=== PATIENT | male | born 1945 | race Caucasian/White ===

== ENCOUNTER 2017-09-05 03:50 | Inpatient (IN) | payer MEDICARE, BC ==
[2017-09-05] MEDS ORDERED: Ondansetron 4 MG Tab.DIS PO ONE (04:46)
[2017-09-05] MEDS ORDERED: Sodium Chloride 0.9% 10 ML Syringe FLUSH PRN (05:06)
[2017-09-05] MEDS ORDERED: Iopamidol 612 MG/ML 150 ML Bottle IV PRN (05:16)
--- NOTE | 2017-09-05 05:54 | EDM.PDOC ---
ED HPI GENERAL MEDICAL PROBLEM - General Chief Complaint: Gastrointestinal Problem Stated Complaint: LOWER STOMACH PAIN Time Seen by Provider: 09/05/17 04:46 Source of Information: Reports: Patient History Limitations: Reports: No Limitations - History of Present Illness INITIAL COMMENTS - FREE TEXT/NARRATIVE: This patient had coronary artery bypass surgery about 5 days ago. While in the hospital he developed some diarrhea but that had decreased by the last day he was there. Now he's having a lot of abdominal pain lower abdominal pain began about 9:30 PM tonight he took some tramadol but that didn't seem to help any. He describes the pain is about 8 out of 10. Abdomen Pain Score (Numeric/FACES): 8 - Related Data Allergies Allergy/AdvReac Type Severity Reaction Status Date / Time codeine [From Guaiatussin AC] AdvReac Vomiting Verified 09/05/17 08:48 guaifenesin AdvReac Vomiting Verified 09/05/17 08:48 [From Guaiatussin ] Home Meds: Home Meds Aspirin 325 mg PO DAILY 06/05/15 [History] FLUoxetine [PROzac] 20 mg PO DAILY 06/05/15 [History] Simvastatin [Zocor] 80 mg PO DAILY 06/05/15 [History] Amiodarone [Cordarone] 200 mg PO DAILY 09/05/17 [History] Docusate Sodium [Dss] 250 mg PO DAILY 09/05/17 [History] Metoprolol Tartrate 25 mg PO BID 09/05/17 [History] Omeprazole [priLOSEC OTC] 20 mg PO DAILY 09/05/17 [History] traMADol Hcl/Acetaminophen [Ultracet Tablet] 1 each PO Q4H PRN 09/05/17 [History ] Past Medical History HEENT History: Reports: Impaired Vision Cardiovascular History: Reports: Aneurysm, Angina, CAD, High Cholesterol, Hypertension, PVD Musculoskeletal History: Reports: Arthritis, Back Pain, Chronic - Past Surgical History Cardiovascular Surgical History: Reports: AAA Repair, Coronary Artery Bypass Other Cardiovascular Surgeries/Procedures: CABGx4 Male Surgical History: Reports: Other (See Below) Other Male Surgeries/Procedures: stent placed in bladder after AAA surgery Social & Family History - Tobacco Use Smoking Status *Q: Former Smoker Used Tobacco, but Quit: Yes Month Tobacco Last Used: 10 years - Caffeine Use Caffeine Use: Reports: Coffee - Recreational Drug Use Recreational Drug Use: No ED ROS GENERAL - Review of Systems Review Of Systems: ROS reveals no pertinent complaints other than HPI. ED EXAM, GI/ABD - Physical Exam Exam: See Below Exam Limited By: No Limitations General Appearance: Alert, WD/WN, Mild Distress Eyes: Bilateral: Normal Appearance Throat/Mouth: Normal Oropharynx Head: Atraumatic Neck: Normal Inspection Respiratory/Chest: No Respiratory Distress, Lungs Clear Cardiovascular: Regular Rate, Rhythm GI/Abdominal Exam: Other (Slightly distended and firm there is increased redness in the left upper quadrant suggesting a lot of gas there. I don't appreciate any definite masses throughout the rest the abdomen but he just has generalized tenderness) Extremities: Normal Inspection Neurological: Alert, Oriented Skin Exam: Warm, Dry Course - Vital Signs Last Recorded V/S: Last Vital Signs Temp 37.1 C 09/06/17 03:00 Pulse 70 09/06/17 03:00 Resp 18 09/06/17 03:00 BP 112/69 09/06/17 03:00 Pulse Ox 96 09/06/17 05:26 - Orders/Labs/Meds Orders: Active Orders 24 hr Category Date Time Status Abdomen Pelvis w Cont [CT] Stat Exams 09/05/17 05:06 Taken Saline Lock Insert [OM.PC] Urgent Oth 09/05/17 05:06 Ordered Medication Orders Amiodarone HCl (Cordarone) 200 mg PO DAILY [facility] Last Admin: 09/05/17 11:23 Dose: 200 mg Aspirin (Ecotrin) 325 mg PO DAILY [facility] Last Admin: 09/05/17 11:23 Dose: 325 mg Docusate Sodium (Colace) 200 mg PO DAILY [facility] Last Admin: 09/05/17 11:22 Dose: 200 mg Fluoxetine HCl (Prozac) 20 mg PO DAILY [facility] Last Admin: 09/05/17 11:25 Dose: 20 mg Hydromorphone HCl (Dilaudid Reclamation Worker 15 Mg In Ns 30 Ml) 0 mg IV ASDIRECTED PRN; Protocol 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 Last Admin: 09/05/17 11:07 Dose: 15 mg Ampicillin Sodium/Sulbactam (Sodium 3 gm/ Sodium Chloride) 100 mls @ 200 mls/ hr IV Q6HR [facility] Last Admin: 09/06/17 04:59 Dose: 200 mls/hr Admin: 02/18/18 21:19 Dose: 200 mls/hr Admin: 09/05/17 15:24 Dose: 200 mls/hr Admin: 09/05/17 11:16 Dose: 200 mls/hr Aztreonam/Dextrose 1 gm/ (Premix) 50 mls @ 100 mls/hr IV Q8H [facility] Last Admin: 09/06/17 00:01 Dose: 100 mls/hr Infusion: 09/05/17 16:40 Dose: 100 mls/hr Admin: 09/05/17 16:10 Dose: 100 mls/hr Infusion: 09/05/17 09:20 Dose: 100 mls/hr Admin: 09/05/17 08:50 Dose: 100 mls/hr Potassium Chloride/Dextrose/Sod Cl (D5 1/2 Ns W/ 20 Meq/L Kcl) 1,000 mls @ 100 mls/hr IV ASDIRECTED [facility] Last Admin: 09/05/17 23:57 Dose: 100 mls/hr Metoprolol Tartrate (Lopressor) 25 mg PO BID [facility] Last Admin: 09/05/17 21:19 Dose: 25 mg Admin: 09/05/17 11:29 Dose: 25 mg Naloxone HCl (Narcan) 0.1 mg IV ASDIRECTED PRN PRN Reason: decreased respiratory rate Ondansetron HCl (Zofran) 4 mg IVPUSH Q4H PRN PRN Reason: Nausea Pantoprazole Sodium (Protonix Iv) 40 mg IV Q24H [facility] Last Admin: 09/05/17 11:25 Dose: 40 mg Simvastatin (Zocor) 80 mg PO BEDTIME [facility] Last Admin: 09/05/17 21:19 Dose: 80 mg Tramadol HCl (Ultram) 50 mg PO Q4H PRN PRN Reason: Pain Labs: Laboratory Tests 09/05/17 09/05/17 09/05/17 Range/Units 05:18 05:18 06:22 WBC 7.3 (4.5-11.0) K/uL RBC 3.33 L (4.30-5.90) M/uL Hgb 10.5 L (12.0-15.0) g/dL Hct 33.0 L (40.0-54.0) % MCV 99 H (80-98) fL MCH 32 H (27-31) pg MCHC 32 (32-36) % Plt Count 177 (150-400) K/uL Neut % (Auto) 68 H (36-66) % Lymph % (Auto) 14 L (24-44) % [place] % (Auto) 12 H (2-6) % Eos % (Auto) 6 H (2-4) % Baso % (Auto) 0 (0-1) % Sodium 137 L (140-148) mmol/L Potassium 4.0 (3.6-5.2) mmol/L Chloride 103 (100-108) mmol/L Carbon Dioxide 25 (21-32) mmol/L Anion Gap 13.0 (5.0-14.0) mmol/L BUN 22 H (7-18) mg/dL Creatinine 1.4 H (0.8-1.3) mg/dL Est Cr Clr Drug Dosing 50.80 mL/min Estimated GFR (MDRD) 50 L (>60) Glucose 120 H (74-106) mg/dL Calcium 8.1 L (8.5-10.1) mg/dL Total Bilirubin 0.4 (0.2-1.0) mg/dL AST 30 (15-37) U/L ALT 29 (12-78) U/L Alkaline Phosphatase 43 L (46-116) U/L Total Protein 5.9 L (6.4-8.2) g/dL Albumin 2.6 L (3.4-5.0) g/dL Globulin 3.3 (2.3-3.5) g/dL Albumin/Globulin Ratio 0.8 L (1.2-2.2) Urine Color Yellow Urine Appearance Clear Urine pH 7.0 (4.5-8.0) Ur Specific Deal 1.005 L (1.008-1.030) Urine Protein Trace (NEGATIVE) mg/dL Urine Glucose (UA) Normal (NEGATIVE) mg/dL Urine Ketones Negative (NEGATIVE) mg/dL Urine Occult Blood Negative (NEGATIVE) Urine Nitrite Negative (NEGAITVE) Urine Bilirubin Negative (NEGATIVE) Urine Urobilinogen Normal (NORMAL) mg/dL Ur Leukocyte Esterase Negative (NEGATIVE) Urine RBC 0-5 (0-5) Urine WBC Not seen (0-5) Ur Epithelial Cells Not seen Amorphous Sediment Not seen Urine Bacteria Not seen Urine Mucus Not seen Meds: Medications Generic Name Dose Route Start Last Admin Trade Name Freq PRN Reason Stop Dose Admin Amiodarone HCl 200 mg 09/05/17 09:00 09/05/17 11:23 Cordarone PO 200 mg DAILY NARENDRA Administration Aspirin 325 mg 09/05/17 09:00 09/05/17 11:23 Ecotrin PO 325 mg DAILY NARENDRA Administration Docusate Sodium 200 mg 09/05/17 09:00 09/05/17 11:22 Colace PO 200 mg DAILY NARENDRA Administration Fluoxetine HCl 20 mg 09/05/17 09:00 09/05/17 11:25 Prozac PO 20 mg DAILY NARENDRA Administration Hydromorphone HCl 0 mg 09/05/17 08:45 09/05/17 11:07 Dilaudid Reclamation Worker 15 Mg In Ns 30 Ml IV 15 mg ASDIRECTED PRN Administration P[employer]NCING [employer]HE OPERATOR PAIN CONTROL Protocol Ampicillin Sodium/Sulbactam 100 mls @ 200 mls/hr 09/05/17 10:00 09/06/17 04: 59 Sodium 3 gm/ Sodium Chloride IV 200 mls/hr Q6HR NARENDRA Administration Aztreonam/Dextrose 1 gm/ 50 mls @ 100 mls/hr 09/05/17 09:00 09/06/17 00:01 Premix IV 100 mls/hr Q8H NARENDRA Administration Potassium Chloride/Dextrose/Sod Cl 1,000 mls @ 100 mls/hr 09/05/17 08:45 23:57 D5 1/2 Ns W/ 20 Meq/L Kcl IV 100 mls/hr ASDIRECTED NARENDRA Administration Metoprolol Tartrate 25 mg 09/05/17 09:00 09/05/17 21:19 Lopressor PO 25 mg BID NARENDRA Administration Naloxone HCl 0.1 mg 09/05/17 08:45 Narcan IV ASDIRECTED PRN decreased respiratory rate Ondansetron HCl 4 mg 09/05/17 08:42 Zofran IVPUSH Q4H PRN Nausea Pantoprazole Sodium 40 mg 09/05/17 09:00 09/05/17 11:25 Protonix Iv IV 40 mg Q24H NARENDRA Administration Simvastatin 80 mg 09/05/17 21:00 09/05/17 21:19 Zocor PO 80 mg BEDTIME NARENDRA Administration Tramadol HCl 50 mg 09/05/17 08:42 Ultram PO Q4H PRN Pain Discontinued Medications Generic Name Dose Route Start Last Admin Trade Name Roscoeq PRN Reason Stop Dose Admin Sodium Chloride 84 mls @ 3.5 mls/sec 09/05/17 05:30 09/05/17 05:40 Normal Saline IV 3.5 mls/sec ASDIRECTED NARENDRA Administration Iopamidol 133 ml 09/05/17 05:16 09/05/17 05:39 Isovue-300 (61%) IV 09/06/17 05:17 133 ml . DIRECTED PRN Administration RADIOLOGY EXAM Ondansetron HCl 8 mg 09/05/17 04:46 09/05/17 05:02 Zofran Odt PO 09/05/17 04:47 Not Given ONETIME ONE Ondansetron HCl 4 mg 09/05/17 07:45 09/05/17 07:54 Zofran IVPUSH 09/05/17 07:46 4 mg ONETIME ONE Administration Sodium Chloride 10 ml 09/05/17 05:06 09/05/17 07:57 Saline Flush FLUSH 10 ml ASDIRECTED PRN Administration Keep Vein Open - Radiology Interpretation Free Text/Narrative:: Abdominal CT showed some suspected walled bowel bowel wall thickening at the splenic flexure possibly due to infectious colitis inflammatory bowel disease or ischemic changes. 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 Kunal Dolan her surgeon and he easily come down and take a look at him and a little while. I informed the patient overall patient looks like he is in the pretty good condition not in any distress at all. Free Text/Narrative Re-Assessment/Exam: 09/06/17 06:00 Dr. Vasquez Dolan saw this patient in the emergency department and felt that he had acute cholecystitis. He admitted him with plans to do a cholecystectomy Departure - Departure Time of Disposition: 07:00 Disposition: Admitted As Inpatient 66 Condition: Fair Clinical Impression: Acute cholecystitis - Discharge Information - My Orders Last 24 Hours: My Active Orders 09/05/17 05:06 Abdomen Pelvis w Cont [CT] Stat Saline Lock Insert [OM.PC] Urgent - Assessment/Plan Last 24 Hours: My Active Orders 09/05/17 05:06 Abdomen Pelvis w Cont [CT] Stat Saline Lock Insert [OM.PC] Urgent
[2017-09-05] MEDS ORDERED: Ondansetron 4 MG/2 ML SDV IVPUSH ONE (07:45)
[2017-09-05] MEDS ORDERED: Ondansetron 4 MG/2 ML SDV IVPUSH PRN (08:42)
[2017-09-05] MEDS ORDERED: traMADol 50 MG Tab PO PRN (08:42)
[2017-09-05] MEDS ORDERED: Naloxone 0.4 MG/ML SDV IV PRN (08:45)
[2017-09-05] MEDS ORDERED: HYDROmorphone/Normal Saline 15 MG/30 ML PCA IV PRN (08:45)
[2017-09-05] MEDS: Aztreonam/Dextrose-Water 1 GM in Premix Bag 1 BAG IV SCH ×2 (08:50→16:10)
[2017-09-05] MEDS: Ampicillin/Sulbactam Na 3 GM in Sodium Chloride 0.9% 100 ML IV SCH ×3 (11:16→21:19)
[2017-09-05] MEDS: Docusate Sodium 100 MG Cap PO SCH (11:22)
[2017-09-05] MEDS: Aspirin 325 MG Tab.EC PO SCH (11:23)
[2017-09-05] MEDS: Amiodarone 200 MG Tab PO SCH (11:23)
[2017-09-05] MEDS: Pantoprazole 40 MG Vial IV SCH (11:25)
[2017-09-05] MEDS: FLUoxetine 20 MG Cap PO SCH (11:25)
[2017-09-05] MEDS: Metoprolol Tartrate 25 MG Tab PO SCH ×2 (11:29→21:19)
--- NOTE | 2017-09-05 13:16 | PCM.PN ---
- General Info Date of Service: 09/05/17 Admission Dx/Problem (Free Text): Called to to do a consult for medical management for Yoni who I have known for many years. Last week, Wednesday, he had CABS with 4 vessel bypass. Last evening he developed abd pain and came to the ER and was found to have an acute gallbladder. He was admitted early this morning. 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 He also has a history of HTN and depression. - Review of Systems General: Reports: Weakness, Fatigue HEENT: Reports: No Symptoms Pulmonary: Reports: Shortness of Breath Cardiovascular: Reports: Dyspnea on Exertion Gastrointestinal: Reports: Abdominal Pain Genitourinary: Reports: No Symptoms Musculoskeletal: Reports: No Symptoms Skin: Reports: No Symptoms Psychiatric: Reports: No Symptoms - Patient Data Vitals - Most Recent: Last Vital Signs Temp 99.5 F 09/05/17 11:32 Pulse 85 09/05/17 11:47 Resp 18 09/05/17 11:32 BP 139/75 09/05/17 11:47 Pulse Ox 94 L 09/05/17 13:02 Weight - Most Recent: 194 lb 2 oz I&O - Last 24 Hours: Intake & Output 09/04/17 09/05/17 09/05/17 22:59 06:59 14:59 Intake Total 610 Output Total 500 Balance 110 Lab Results Last 24 Hours: Laboratory Results - last 24 hr 09/05/17 Range/Units 09:37 NT-Pro-B Natriuret Pep 4434 H (5-125) pg/mL Med Orders - Current: Current Medications Amiodarone HCl (Cordarone) 200 mg PO DAILY [facility] Last Admin: 09/05/17 11:23 Dose: 200 mg Aspirin (Ecotrin) 325 mg PO DAILY [facility] Last Admin: 09/05/17 11:23 Dose: 325 mg Docusate Sodium (Colace) 200 mg PO DAILY [facility] Last Admin: 09/05/17 11:22 Dose: 200 mg Fluoxetine HCl (Prozac) 20 mg PO DAILY [facility] Last Admin: 09/05/17 11:25 Dose: 20 mg Hydromorphone HCl (Dilaudid Manager Laundry 15 Mg In Ns 30 Ml) 0 mg IV ASDIRECTED PRN; 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 Last Admin: 09/05/17 11:07 Dose: 15 mg Ampicillin Sodium/Sulbactam (Sodium 3 gm/ Sodium Chloride) 100 mls @ 200 mls/ hr IV Q6HR [facility] Last Admin: 09/05/17 11:16 Dose: 200 mls/hr Aztreonam/Dextrose 1 gm/ (Premix) 50 mls @ 100 mls/hr IV Q8H [facility] Last Admin: 09/05/17 08:50 Dose: 100 mls/hr Potassium Chloride/Dextrose/Sod Cl (D5 1/2 Ns W/ 20 Meq/L Kcl) 1,000 mls @ 100 mls/hr IV ASDIRECTED [facility] Metoprolol Tartrate (Lopressor) 25 mg PO BID [facility] Last Admin: 09/05/17 11:29 Dose: 25 mg Naloxone HCl (Narcan) 0.1 mg IV ASDIRECTED PRN PRN Reason: decreased respiratory rate Ondansetron HCl (Zofran) 4 mg IVPUSH Q4H PRN PRN Reason: Nausea Pantoprazole Sodium (Protonix Iv) 40 mg IV Q24H [facility] Last Admin: 09/05/17 11:25 Dose: 40 mg Simvastatin (Zocor) 80 mg PO BEDTIME [facility] Tramadol HCl (Ultram) 50 mg PO Q4H PRN PRN Reason: Pain Discontinued Medications Sodium Chloride (Normal Saline) 84 mls @ 3.5 mls/sec IV ASDIRECTED [facility] Last Admin: 09/05/17 05:40 Dose: 3.5 mls/sec Iopamidol (Isovue-300 (61%)) 133 ml IV . DIRECTED PRN PRN Reason: RADIOLOGY EXAM Stop: 09/06/17 05:17 Last Admin: 09/05/17 05:39 Dose: 133 ml Ondansetron HCl (Zofran Odt) 8 mg PO ONETIME ONE Stop: 09/05/17 04:47 Last Admin: 09/05/17 05:02 Dose: Not Given Ondansetron HCl (Zofran) 4 mg IVPUSH ONETIME ONE Stop: 09/05/17 07:46 Last Admin: 09/05/17 07:54 Dose: 4 mg Sodium Chloride (Saline Flush) 10 ml FLUSH ASDIRECTED PRN PRN Reason: Keep Vein Open Last Admin: 09/05/17 07:57 Dose: 10 ml - Exam General: Alert, Oriented HEENT: Pupils Equal, Pupils Reactive, EOMI, Mucous Membr. Moist/Paul Neck: Supple Lungs: Clear to Auscultation, Normal Respiratory Effort GI/Abdominal Exam: Normal Bowel Sounds, Soft, No Organomegaly, No Distention, No Abnormal Bruit, No Mass, Pelvis Stable, Tender, Hernia (There are 2 hernias evident.) Back Exam: Normal Inspection, Full Range of Motion Extremities: Normal Inspection, Normal Range of Motion, Non-Tender, No Pedal Edema, Normal Capillary Refill Peripheral Pulses: 1+: Radial (L), Radial (R) Skin: Warm, Dry, Intact Wound/Incisions: Healing Well Neurological: No New Focal Deficit Psy/Mental Status: Alert, Normal Affect, Normal Mood - Problem List Review Problem List Initiated/Reviewed/Updated: Yes - Assessment Assessment:: Assessment/Plan: #1. Acute gallbladder: @2. ASHD; Stable S/P 4 vessels CABS 5 days ago. Needs to continue with his meds as listed. No acute pathology presently. EKG reveals no acute pathology. #3. HTN stable at 139/75. #4. HLD: Continue with Simvastatin. #5. Depression: Stable.
[2017-09-05] MEDS: Simvastatin 20 MG Tab PO SCH (21:19)
[2017-09-05] MEDS: D5 1/2 NS w/ 20 mEq/L KCl 1,000 ML IV SCH (23:57)
[2017-09-06] MEDS: Aztreonam/Dextrose-Water 1 GM in Premix Bag 1 BAG IV SCH ×3 (00:01→17:56)
[2017-09-06] MEDS: Ampicillin/Sulbactam Na 3 GM in Sodium Chloride 0.9% 100 ML IV SCH ×4 (04:59→21:06)
--- NOTE | 2017-09-06 09:19 | PCM.CONS ---
H&P History of Present Illness - General Date of Service: 09/06/17 Admit Problem/Dx: ED requested a consult on this patient for abdominal pain for 1 week. He presented to the ED with acute diarrhea and abdominal pain The CT Scan showed gallbladder wall thickening. Source of Information: Patient History Limitations: Reports: No Limitations - History of Present Illness Initial Comments - Free Text/Narative: See HPI Duration of Symptoms: Reports: Other (pain has resolved since being in the hospital. ) Quality: Reports: Dull, Pressure, Sharp, Stabbing Improves with: Reports: None Worsens with: Reports: Eating Associated Symptoms: Reports: Nausea/Vomiting Abdomen Pain Score (Numeric/FACES): 0 (Feeling better today. ) - Related Data Allergies/Adverse Reactions: Allergies Allergy/AdvReac Type Severity Reaction Status Date / Time codeine [From aiatussin ] AdvReac Vomiting Verified 09/05/17 08:48 guaifenesin AdvReac Vomiting Verified 09/05/17 08:48 [From [facility]] Home Medications: Home Meds Aspirin 325 mg PO DAILY 06/05/15 [History] FLUoxetine [PROzac] 20 mg PO DAILY 06/05/15 [History] Simvastatin [Zocor] 80 mg PO DAILY 06/05/15 [History] Amiodarone [Cordarone] 200 mg PO DAILY 09/05/17 [History] Docusate Sodium [Dss] 250 mg PO DAILY 09/05/17 [History] Metoprolol Tartrate 25 mg PO BID 09/05/17 [History] Omeprazole [priLOSEC OTC] 20 mg PO DAILY 09/05/17 [History] traMADol Hcl/Acetaminophen [Ultracet Tablet] 1 each PO Q4H PRN 09/05/17 [History ] Past Medical History HEENT History: Reports: Impaired Vision Cardiovascular History: Reports: Aneurysm, Angina, CAD, High Cholesterol, Hypertension, PVD Musculoskeletal History: Reports: Arthritis, Back Pain, Chronic - Past Surgical History Cardiovascular Surgical History: Reports: AAA Repair, Coronary Artery Bypass Other Cardiovascular Surgeries/Procedures: CABGx4 Male Surgical History: Reports: Other (See Below) Other Male Surgeries/Procedures: stent placed in bladder after AAA surgery Social & Family History - Family History HEENT: Reports: Hearing Impairment Musculoskeletal: Reports: None Neurological: Reports: Alzheimers Disease - Tobacco Use Smoking Status *Q: Former Smoker Years of Tobacco use: 55 Used Tobacco, but Quit: Yes Month Tobacco Last Used: 10 years Second Hand Smoke Exposure: No - Caffeine Use Caffeine Use: Reports: Coffee - Recreational Drug Use Recreational Drug Use: No H&P Review of Systems - Review of Systems: Review Of Systems: See Below General: Reports: No Symptoms HEENT: Reports: No Symptoms Pulmonary: Reports: No Symptoms Cardiovascular: Reports: No Symptoms Gastrointestinal: Reports: Abdominal Pain (has resolved) Genitourinary: Reports: No Symptoms Musculoskeletal: Reports: No Symptoms Skin: Reports: No Symptoms Psychiatric: Reports: No Symptoms Neurological: Reports: No Symptoms Hematologic/Lymphatic: Reports: No Symptoms Immunologic: Reports: No Symptoms Exam - Exam Exam: See Below - Vital Signs Vital Signs: Last Vital Signs Temp 98.4 F 09/06/17 07:00 Pulse 70 09/06/17 07:00 Resp 18 09/06/17 07:00 BP 116/65 09/06/17 07:00 Pulse Ox 96 09/06/17 07:34 Weight: 194 lb 2.013 oz - Exam Quality Assessment: DVT Prophylaxis General: Alert, Oriented HEENT: PERRLA Neck: Supple, Trachea Midline Lungs: Clear to Auscultation, Normal Respiratory Effort Cardiovascular: Regular Rate, Regular Rhythm GI/Abdominal Exam: Normal Bowel Sounds, Soft, Non-Tender, No Distention (Male) Exam: Deferred Rectal (Males) Exam: Deferred Back Exam: Normal Inspection, Full Range of Motion Extremities: Normal Inspection, Normal Range of Motion, No Pedal Edema Skin: Warm, Dry, Intact Neurological: Cranial Nerves Intact, Reflexes Equal Bilateral Neuro Extensive - Mental Status: Alert, Oriented x3, Normal Mood/Affect Neuro Extensive - Motor, Sensory, Reflexes: CN II-XII Intact Psychiatric: Alert, Normal Affect, Normal Mood - Patient Data Lab Results Last 24 hrs: Laboratory Results - last 24 hr 09/05/17 09/06/17 09/06/17 Range/Units 09:37 04:30 04:30 WBC 9.7 (4.5-11.0) K/uL RBC 3.21 L (4.30-5.90) M/uL Hgb 10.2 L (12.0-15.0) g/dL Hct 32.4 L (40.0-54.0) % MCV 101 H (80-98) fL MCH 32 H (27-31) pg MCHC 32 (32-36) % Plt Count 192 (150-400) K/uL Sodium 136 L (140-148) mmol/L Potassium 4.5 (3.6-5.2) mmol/L Chloride 103 (100-108) mmol/L Carbon Dioxide 25 (21-32) mmol/L Anion Gap 12.5 (5.0-14.0) mmol/L BUN 20 H (7-18) mg/dL Creatinine 1.6 H (0.8-1.3) mg/dL Est Cr Clr Drug Dosing 44.45 mL/min Estimated GFR (MDRD) 43 L (>60) Glucose 113 H (74-106) mg/dL Calcium 7.8 L (8.5-10.1) mg/dL Phosphorus 2.6 (2.5-4.9) mg/dL Magnesium 2.2 (1.8-2.4) mg/dL Total Bilirubin 0.7 D (0.2-1.0) mg/dL AST 33 (15-37) U/L ALT 31 (12-78) U/L Alkaline Phosphatase 51 (46-116) U/L NT-Pro-B Natriuret Pep 4434 H (5-125) pg/mL Total Protein 5.6 L (6.4-8.2) g/dL Albumin 2.3 L (3.4-5.0) g/dL Globulin 3.3 (2.3-3.5) g/dL Albumin/Globulin Ratio 0.7 L (1.2-2.2) 09/06/17 Range/Units 07:33 WBC (4.5-11.0) K/uL RBC (4.30-5.90) M/uL Hgb (12.0-15.0) g/dL Hct (40.0-54.0) % MCV (80-98) fL MCH (27-31) pg MCHC (32-36) % Plt Count (150-400) K/uL Sodium (140-148) mmol/L Potassium (3.6-5.2) mmol/L Chloride (100-108) mmol/L Carbon Dioxide (21-32) mmol/L Anion Gap (5.0-14.0) mmol/L BUN (7-18) mg/dL Creatinine (0.8-1.3) mg/dL Est Cr Clr Drug Dosing mL/min Estimated GFR (MDRD) (>60) Glucose (74-106) mg/dL Calcium (8.5-10.1) mg/dL Phosphorus (2.5-4.9) mg/dL Magnesium (1.8-2.4) mg/dL Total Bilirubin (0.2-1.0) mg/dL AST (15-37) U/L ALT (12-78) U/L Alkaline Phosphatase (46-116) U/L NT-Pro-B Natriuret Pep 6733 H (5-125) pg/mL Total Protein (6.4-8.2) g/dL Albumin (3.4-5.0) g/dL Globulin (2.3-3.5) g/dL Albumin/Globulin Ratio (1.2-2.2) Result Diagrams: 09/06/17 04:30 09/06/17 04:30 Consult PN Assessment/Plan POD#: 0 Procedures: Procedures ASSAY OF CREATININE (05/28/16) CARDIOVASCULAR STRESS TEST (06/06/15) CT THORAX W/O DYE (05/28/16) EXTREMITY STUDY (05/11/17) HT MUSCLE IMAGE SPECT MULT (06/06/15) PROTHROMBIN TIME (03/07/14) ROUTINE VENIPUNCTURE (05/28/16) Problem List Initiated/Reviewed/Updated: Yes My Orders Last 24 Hours: My Active Orders 09/06/17 Breakfast Full Liquid Diet [DIET] 09/07/17 04:00 AMYLASE [CHEM] Routine CBC W/O DIFF,HEMOGRAM [HEME] Timed COMPREHENSIVE METABOLIC PN,CMP [CHEM] Timed LIPASE [CHEM] Routine MAGNESIUM [CHEM] Timed PHOSPHORUS [CHEM] Timed PRO B-TYPE NATRIUR PEPT,BNPPRO [CHEM] Timed Plan: Plan: Check C Diff on next loose BM Full liquid diet Check BNP on today's labs Check CMP, CBC, BNP. Magnesium, Phosphorous, Amylase and Lipase in AM Will evaluate in AM if no further episodes of abdominal pain and patient tolerates diet may be discharged in AM. Follow up after discharge with Vasquez Dolan MD on 09/15/17. Alana Hdez 09/06/17
[2017-09-06] MEDS: FLUoxetine 20 MG Cap PO SCH (10:00)
[2017-09-06] MEDS: Pantoprazole 40 MG Vial IV SCH (10:00)
[2017-09-06] MEDS: Metoprolol Tartrate 25 MG Tab PO SCH ×2 (10:01→21:05)
[2017-09-06] MEDS: Docusate Sodium 100 MG Cap PO SCH (10:01)
[2017-09-06] MEDS: Aspirin 325 MG Tab.EC PO SCH (10:01)
[2017-09-06] MEDS: Amiodarone 200 MG Tab PO SCH (10:02)
[2017-09-06] MEDS: D5 1/2 NS w/ 20 mEq/L KCl 1,000 ML IV SCH (11:18)
--- NOTE | 2017-09-06 13:17 | CONS ---
DATE OF SERVICE: 09/05/2017 REFERRING PHYSICIAN: CONSULTING PHYSICIAN: Vasquez Dolan MD HISTORY OF PRESENT ILLNESS: This is a 72-year-old, 5 days status post coronary artery bypass done off pump, presenting with intermittent lower abdominal pain. He was also noted to have some diarrhea or loose bowel movements. The pain has been fairly steady and not coming in waves per se. He has had no significant nausea. Workup in the emergency room showed a clotted aortic graft, but this is per the patient and son, a chronic problem, i.e. it is not new. Apart from that, there was some suggestion of a possible gallbladder disease in terms of distended gallbladder with the plain x-ray also showing a stone in the gallbladder neck. There was also some suggestion of some thickening of the splenic flexure of the colon. His past medical history, social history, medications, and allergies are per the emergency room note. LABORATORY DATA: Labs show a white count of 7300, hemoglobin 10.5. Electrolytes are within normal limits. Creatinine is 1.4. Urinalysis was unremarkable. PHYSICAL EXAMINATION: GENERAL: The patient is alert. VITAL SIGNS: Stable vital signs. He presently is afebrile. ABDOMEN: A palpable gallbladder with quite a bit in the way of obvious tenderness in that location. Otherwise, the remainder of the abdominal exam is relatively unremarkable. IMPRESSION: Acute abdominal pain. PLAN: At this point, the patient appeared to be reasonably stable. I think the most likely diagnosis would be an acute cholecystitis. I think he has at least that going on. Possibly, he also may have a component of ischemic colitis of the splenic flexure as well as possible Clostridium difficile infection given the diarrhea and intermittent lower abdominal pain. The plan at this point will be to admit the patient. We will start him on Unasyn and Azactam for antibiotics. We will check a stool for C. difficile enterotoxin and follow things clinically. At this point, he would appear to be a reasonable candidate for cholecystectomy, particularly given the recent revascularization and the fact that he is only on aspirin and blood thinners. We will assess the situation day by day over the next couple of days to determine the best course, determine if either short-term or a longer-term cholecystectomy as well as looking at other issues as they arise such as possibility of the ischemic colitis or Clostridium difficile infection. Vasquez Dolan MD /[id number]
[2017-09-06] MEDS ORDERED: Tamsulosin 0.4 MG Cap.ER PO ONE (15:30)
[2017-09-06] MEDS: Albuterol 0.083% 2.5 MG/3 ML Neb Soln NEB PRN (18:08)
[2017-09-06] MEDS: Simvastatin 20 MG Tab PO SCH (21:06)
[2017-09-07] MEDS: Aztreonam/Dextrose-Water 1 GM in Premix Bag 1 BAG IV SCH ×2 (00:06→08:23)
[2017-09-07] MEDS: Albuterol 0.083% 2.5 MG/3 ML Neb Soln NEB PRN (00:55)
[2017-09-07] MEDS: Ampicillin/Sulbactam Na 3 GM in Sodium Chloride 0.9% 100 ML IV SCH ×2 (04:51→09:14)
[2017-09-07] MEDS ORDERED: Tamsulosin 0.4 MG Cap.ER PO SCH (09:00)
[2017-09-07] MEDS: Aspirin 325 MG Tab.EC PO SCH (09:14)
[2017-09-07] MEDS: FLUoxetine 20 MG Cap PO SCH (09:14)
[2017-09-07] MEDS: Metoprolol Tartrate 25 MG Tab PO SCH (09:15)
[2017-09-07] MEDS: Docusate Sodium 100 MG Cap PO SCH (09:16)
[2017-09-07] MEDS: Pantoprazole 40 MG Vial IV SCH (09:17)
[2017-09-07] MEDS: Amiodarone 200 MG Tab PO SCH (10:03)
--- NOTE | 2017-09-07 16:03 | DISCH ---
FINAL DIAGNOSES: 1. Acute cholecystitis. 2. Possible focal inflammation of splenic flexure of colon. 3. Status post recent coronary artery bypass graft. 4. History of hypertension. 5. History of central and peripheral vascular disease, status post aortic aneurysm repair. HOSPITAL COURSE: This is a 72-year-old presenting 5 days after coronary artery bypass graft with abdominal pain. The patient initially had some diarrhea, which has now subsided. He was noted to have a marked tenderness and distention of the gallbladder with the gallbladder stone lodged in the neck on plain x-ray, and it appeared to have a relatively mild case of acute cholecystitis. He was started on antibiotics and this has clinically resolved at this point. There was also some question of possibly some inflammation in the splenic flexure of the colon on the CT scan, but clinically that has never been significant with no significant tenderness present, and presently, the abdomen is soft and nontender. He will be discharged home with Augmentin 875 mg p.o. b.i.d. x10 days. The patient will follow up with Dr. Dolan in [facility] on 09/15/2017 regarding the cholecystitis as well as his incisional hernias, and he will otherwise follow up with Dr. Bhatti in 2 weeks Cardiology and Cardiac Surgery appointments that have previously been set up.
== END 2017-09-07 14:15 | disposition home or self-care (01) | DRG 446 ==
LOC: JP.ED 03:50 → JP.MS 07:30
PROVIDERS: ADMIT Surgery; ATTEND Surgery
DX: K81.0 Acute cholecystitis (principal); I25.10 Atherosclerotic heart disease of native coronary artery without angina pectoris; R19.7 Diarrhea, unspecified; Z87.891 Personal history of nicotine dependence; I25.119 Atherosclerotic heart disease of native coronary artery with unspecified angina pectoris; R10.30 Lower abdominal pain, unspecified; I10 Essential (primary) hypertension; Z95.1 Presence of aortocoronary bypass graft; H54.7 Unspecified visual loss; E78.00 Pure hypercholesterolemia, unspecified; M54.9 Dorsalgia, unspecified; G89.29 Other chronic pain; F32.9 Major depressive disorder, single episode, unspecified; Z79.82 Long term (current) use of aspirin; Z88.5 Allergy status to narcotic agent; Z88.8 Allergy status to other drugs, medicaments and biological substances
CPT/HCPCS: 36415; 74177; 80053; 81001; 85025; 99285; J7030; 82150; 83690; 83735; 83880; 84100; 85027; 93005; 93010; 94640; 94762; 99284; A9270-GY; C9113; J0295; J1170; J2405; J3480; J3490; J7050

== ENCOUNTER 2017-10-08 05:42 | Day surgery (SDC) | payer MEDICARE, BC ==
[2017-10-08] MEDS ORDERED: Acetaminophen 500 MG Tab PO ONE (05:45)
[2017-10-08] MEDS ORDERED: Bupivacaine 0.5%/EPINEPHrine 1:200,000 50 ML MDV ONE (06:34)
[2017-10-08] MEDS: Dextrose 5%-Lactated Ringers 1,000 ML IV SCH ×3 (06:50→22:36)
[2017-10-08] MEDS ORDERED: fentaNYL 250 MCG/5 ML SDV ONE (07:14)
[2017-10-08] MEDS ORDERED: Succinylcholine 200 MG/10 ML MDV ONE (07:15)
[2017-10-08] MEDS ORDERED: Ondansetron 4 MG/2 ML SDV ONE (07:15)
[2017-10-08] MEDS ORDERED: Rocuronium 50 MG/5 ML Vial ONE (07:15)
[2017-10-08] MEDS ORDERED: Propofol 200 MG/20 ML SDV ONE (07:15)
[2017-10-08] MEDS ORDERED: Neostigmine Methylsulfate 1 MG/ML 5 ML Syringe ONE (07:15)
[2017-10-08] MEDS ORDERED: Dexamethasone 4 MG/ML SDV ONE (07:15)
[2017-10-08] MEDS ORDERED: Glycopyrrolate 0.2 MG/ML 5 ML MDV ONE (07:15)
[2017-10-08] MEDS ORDERED: HYDROmorphone/Normal Saline 15 MG/30 ML PCA IV PRN (07:27)
[2017-10-08] MEDS ORDERED: Naloxone 0.4 MG/ML SDV IVPUSH PRN (07:27)
[2017-10-08] MEDS ORDERED: Naloxone 0.4 MG/ML SDV IV PRN (07:32)
[2017-10-08] MEDS: cefOXitin 2 GM in Sodium Chloride 0.9% 50 ML IV ONE ×2 (07:51→10:43)
[2017-10-08] MEDS: Ropivacaine 40 ML, Dexamethasone 8 MG, EPINEPHrine 0.4 MG, Sodium Chloride 0.9% 37.6 ML NERVRT ONE ×8 (07:52→10:43)
[2017-10-08] MEDS ORDERED: Ketamine 500 MG/5 ML MDV IV ONE (08:00)
[2017-10-08] MEDS ORDERED: fentaNYL 100 MCG/2 ML SDV ONE (08:51)
[2017-10-08] MEDS ORDERED: Lactated Ringers 1,000 ML ONE (08:55)
[2017-10-08] MEDS ORDERED: hydrOXYzine HCl 100 MG/2 ML SDV IM ONE (09:15)
[2017-10-08] MEDS ORDERED: Ondansetron 4 MG/2 ML SDV IVPUSH PRN (11:00)
[2017-10-08] MEDS ORDERED: Pantoprazole 40 MG Vial IVPUSH SCH (12:00)
[2017-10-08] MEDS: cefOXitin 2 GM in Sodium Chloride 0.9% 50 ML IV SCH ×2 (13:23→20:41)
[2017-10-08] MEDS: Acetaminophen/HYDROcodone 325-5 MG Tab PO PRN ×3 (13:33→23:09)
[2017-10-08] MEDS: Docusate Sodium 100 MG Cap PO SCH (20:44)
[2017-10-08] MEDS ORDERED: Simvastatin 20 MG Tab PO SCH (21:00)
[2017-10-09] MEDS: cefOXitin 2 GM in Sodium Chloride 0.9% 50 ML IV SCH ×2 (02:25→07:03)
[2017-10-09] MEDS: Acetaminophen/HYDROcodone 325-5 MG Tab PO PRN ×2 (04:13→08:24)
[2017-10-09] MEDS: Docusate Sodium 100 MG Cap PO SCH (08:22)
[2017-10-09] MEDS ORDERED: Amiodarone 200 MG Tab PO SCH (09:00)
[2017-10-09] MEDS ORDERED: FLUoxetine 20 MG Cap PO SCH (09:00)
[2017-10-09] MEDS ORDERED: Metoprolol Succinate 25 MG Tab.ER PO SCH (09:00)
[2017-10-09] MEDS ORDERED: Aspirin 325 MG Tab.EC PO SCH (09:00)
--- NOTE | 2017-10-11 09:30 | DISCH ---
FINAL DIAGNOSES: 1. Acute cholecystitis and cholelithiasis with inflammatory adherence of gallbladder neck to the duodenum. 2. History for coronary artery disease status post recent coronary artery bypass surgery. 3. History of aortic aneurysm repair. 4. History of peripheral vascular disease. 5. History of hypertension. 6. History of hyperlipidemia. 7. Chronic back pain. Procedures done on 10/08/2017, diagnostic laparoscopy with: 1. Cholecystectomy. 2. Repair of area of deserosalization of the duodenum. SUMMARY: This 72-year-old, recently status post coronary artery bypass grafting, presented roughly 5 days postoperatively from that procedure with an acute cholecystitis. This was treated medically. He presents now for an interval cholecystectomy, after clearance from a cardiovascular standpoint earlier this week. On the day of admission, the patient underwent a laparoscopic cholecystectomy. The patient had dense inflammatory adherence of the neck of the gallbladder to the duodenum, resulting in an area of deserosalization in that area, which was repaired with sutures and fibrin sealant. Postoperatively, otherwise, he has had no significant problems. He will be discharged home with his usual medications plus Downing 5/325 mg 1 to 2 tabs q.4 hours p.r.n. pain, #30, and follow up with Dr. Dolan at [facility] on 10/20/2017. He is instructed on the level of activity and diet.
--- NOTE | 2017-10-14 14:32 | OR ---
DATE OF PROCEDURE: 10/08/2017 PREOPERATIVE DIAGNOSIS: Subacute cholecystitis. POSTOPERATIVE DIAGNOSES: Subacute cholecystitis and cholelithiasis with inflammatory adhesions of the neck of the gallbladder to the duodenum. OPERATIVE PROCEDURES: 1. Laparoscopic cholecystectomy (24272). 2. Repair of area of deserosalization of the duodenum (05592). ANESTHESIA: General. EVIDENCE TECHNICIAN: Alana Guardado PA-C. INDICATIONS FOR PROCEDURE: This is a 72-year-old male originally status post coronary artery bypass graft 5 days postoperatively, developed an acute cholecystitis, who was treated at that time with antibiotics and at this point has been cleared per Dr. Bhakta of the [facility] to undergo a cholecystectomy. The plan is to proceed with a laparoscopic or if necessary open cholecystectomy. Potential risks including bleeding, infection, injury to underlying viscera as well as possibility of cardiopulmonary, septic, or hemorrhagic complications leading to were discussed, and the patient wishes to proceed. DETAILS OF PROCEDURE: The patient was taken to the operating room and placed in a supine position. After general endotracheal anesthesia was induced, the abdomen was prepped and draped. Given this, a long midline incision used for an aortic aneurysm repair, we initially entered the abdomen laparoscopically in the right lateral abdomen. This easily passed into the peritoneal cavity and there was surprisingly very little in the way of adhesions, just a few filmy adhesions of the omentum to the anterior abdominal wall. Given this an epigastric trocar and the trocar adjacent to the umbilicus were then both placed along with one additional 5 mm trocar in the right subcostal region. The patient's gallbladder was quite thickened and leigh and at this point still quite edematous as well consistent with subacute cholecystitis. The dissection began on the gallbladder fundus were there was some omental adhesions and this continued down into the area of the gallbladder neck. At the area of the gallbladder neck there was dense inflammatory adherence of the gallbladder neck, to the duodenum. As this was dissected out, there was some deserosalization of the duodenum, but no overt enterotomy. The dissection was then continued exposing the cystic duct and cystic artery [id number] and both were taken with the VERO stapler and some additional branches of the arteries coming off the right hepatic artery were identified and taken with clips as needed. The gallbladder was then dissected off the gallbladder bed and delivered through the epigastric trocar site. It contained numerous small black friable stones, but no evident mucosal masses were identified. The area of the deserosalization of the duodenum was then treated by means of 3 figure-of- eight stitches placed in seromuscular plane. We reapproximated the serosa, this area was then reinforced with 4 mL of fibrin sealant as well. Blaze-Lr drain was taken out through the right subcostal trocar site and placed into the gallbladder bed. The trocars were then sequentially removed. The 12 mm trocar sites were closed at fascia level with 0 Vicryl stitch and the skin with 4-0 Vicryl skin stitch. Dressing was applied and the patient was taken to the recovery room in satisfactory condition. Physician energy assistant, Alana Guardado, played an essential role in assisting in this case, helping to position the patient, retract structures as needed, as well as suturing and cutting sutures when indicated. Her presence improved the patient's safety and decreased operative time. One additional finding in this was the lack of significant adhesions. The patient has multi- focal recurrent incisional hernia in the midline incision and given the lack of adhesions, this is something that should be able to be repaired laparoscopically with mesh and will be discussed with him at his postoperative visit. Vasquez Dolan MD /[id number]
== END 2017-10-09 10:44 | disposition home or self-care (01) ==
LOC: JP.SDS 05:42 → JP.2SS 09:25 → JP.SDS 10-09 10:44
PROVIDERS: ATTEND Surgery
DX: K80.10 Calculus of gallbladder with chronic cholecystitis without obstruction (principal); I25.810 Atherosclerosis of coronary artery bypass graft(s) without angina pectoris; I10 Essential (primary) hypertension; I73.9 Peripheral vascular disease, unspecified; E78.5 Hyperlipidemia, unspecified; G89.29 Other chronic pain; M54.9 Dorsalgia, unspecified; Z88.8 Allergy status to other drugs, medicaments and biological substances; Z87.891 Personal history of nicotine dependence
CPT/HCPCS: 36415; 43840; 47562; 80053; 82247; 83735; 84075; 84100; 84550; 85027; 88304; A9270; C9113; J0171; J0330; J0694; J1100; J2405; J2704; J2710; J2795; J3010; J3410; J7042; J7050; J7120

== ENCOUNTER 2024-05-03 15:16 | Emergency (ER) | payer MEDICARE, BC ==
[2024-05-03] MEDS: traMADol 50 MG Tab PO ONE (16:54)
== END 2024-05-03 18:38 | disposition home or self-care (01) ==
LOC: JP.ED 15:16
DX: S22.41XA Multiple fractures of ribs, right side, initial encounter for closed fracture (principal); I10 Essential (primary) hypertension; I25.10 Atherosclerotic heart disease of native coronary artery without angina pectoris; E78.00 Pure hypercholesterolemia, unspecified; F17.210 Nicotine dependence, cigarettes, uncomplicated; Z90.49 Acquired absence of other specified parts of digestive tract; Z95.1 Presence of aortocoronary bypass graft; Z79.899 Other long term (current) drug therapy; Z79.82 Long term (current) use of aspirin; Z88.5 Allergy status to narcotic agent; Z88.2 Allergy status to sulfonamides; W01.0XXA Fall on same level from slipping, tripping and stumbling without subsequent striking against object, initial encounter
CPT/HCPCS: 71250; 99283; A9270